=== PATIENT | female | born 1965 | race Caucasian/White ===

== ENCOUNTER 2017-08-21 06:46 | Day surgery (SDC) | payer OTHER ==
[2017-08-17 12:26] VITALS: BMI 33.2
[~2017-08-21 06:46] MED LIST: LACTATED RINGERS 1,000 ML IV SCH; LIDOCAINE 1% 20 ML VIAL (10MG/ML) FOR IV START INTRADERMA PRN
[2017-08-21 07:13] VITALS: TEMP 97.7
[2017-08-21] MEDS ORDERED: fentaNYL (PF) 50 MCG/ML 2 ML AMP ONE (07:56)
[2017-08-21] MEDS ORDERED: GLYCOPYRROLATE 0.2 MG/ML 2 ML VIAL ONE (07:56)
[2017-08-21] MEDS ORDERED: MIDAZOLAM 2 MG/2 ML VIAL ONE (07:56)
[2017-08-21] MEDS ORDERED: LIDOCAINE 1% INJ 10MG/ML (20 ML MDV) ONE (07:56)
[2017-08-21] MEDS ORDERED: PROPOFOL 10 MG/ML 20 ML VIAL IV ONE (07:56)
--- NOTE | 2017-08-21 08:02 | P.GSHP ---
History of Present Illness H&P Date: 08/21/17 Chief Complaint: Screen colonoscopy Is a 51-year-old female referred from Dr. Ruth solomon. Patient presents today for screening colonoscopy. She denies a significant GI complaints. Past Medical History Past Medical History: GERD/Reflux History of Any Multi-Drug Resistant Organisms: None Reported Past Surgical History: Adenoidectomy, Section, Orthopedic Surgery, Tonsillectomy Additional Past Surgical History / Comment(s): LT KNEE SX. D & C. RT FOOT SX Past Anesthesia/Blood Transfusion Reactions: Postoperative Nausea & Vomiting ( PONV) Smoking Status: Former smoker - Past Family History Mother Family Medical History: No Reported History Medications and Allergies Home Medications Medication Instructions Recorded Confirmed Type L.acidoph,Paracasei, B.lactis 1 each PO DAILY 08/17/17 08/21/17 History [Probiotic] Pantoprazole Sodium [Protonix] 40 mg PO DAILY 08/17/17 08/21/17 History Sucralfate [Carafate] 1 gm PO BID 08/17/17 08/21/17 History Allergies Allergy/AdvReac Type Severity Reaction Status Date / Time ciprofloxacin [From Cipro] Allergy FELT LIKE Verified 08/17/17 12:17 LIPS AND FACE WAS TINGLING AND SWOLLEN EYES hydrocodone [From [place]] Allergy Nausea & Verified 08/17/17 12:17 Vomiting codeine AdvReac Nausea & Verified 08/17/17 12:17 Vomiting Surgical - Exam Vital Signs Temp Pulse Resp BP Pulse Ox 97.7 F 60 18 142/86 99 08/21/17 07:11 08/21/17 07:11 08/21/17 07:11 08/21/17 07:11 08/21/17 07:11 - General well developed, no distress - Eyes PERRL - ENT normal pinna - Neck no masses - Respiratory normal expansion - Cardiovascular Rhythm: regular - Abdomen Abdomen: soft, non tender Assessment and Plan Assessment: We'll perform screening colonoscopy.
--- NOTE | 2017-08-21 08:24 | P.OP ---
Date of Procedure: 08/21/17 Preoperative Diagnosis: GERD Screen colonoscopy Postoperative Diagnosis: Antral gastritis No evidence of hiatal hernia No esophagitis Procedure(s) Performed: EGD Colonoscopy Anesthesia: MAC Surgeon: Yeyo Frausto Pathology: other (Antrum) Condition: stable Disposition: PACU Description of Procedure: The patient's placed on the endoscopy table lateral position. She received IV sedation. The gastroscope placed oropharynx passed in the esophagus and into the stomach. Scope was then placed through the pylorus. The first and second portion of the duodenum appeared normal. Scope was then brought back the antrum this. Mildly inflamed. A biopsies performed. Scope was retroflexed and remainder stomach appeared normal. The GE junction was examined. There is no evidence of a hiatal hernia. The distal esophagus appeared normal. The proximal esophagus appeared normal. Scope was withdrawn for patient. Next digital rectal exam was performed which revealed no abnormalities. The flexible colonoscope was then placed patient anus and passed throughout the entire colon. The ileocecal valve was visualized. The cecum, ascending and transverse colon appeared normal. Scope was then brought back the rectum and this appeared normal. Scope withdrawn for patient.
[2017-08-21 09:00] VITALS: BP 133/79; PULSE 58; RESP 18
== END 2017-08-21 09:12 | disposition home or self-care (01) ==
LOC: ORWHC2ENDO 06:46
PROVIDERS: ATTEND Surgery
DX: Z12.11 Encounter for screening for malignant neoplasm of colon (principal); K29.50 Unspecified chronic gastritis without bleeding; K21.9 Gastro-esophageal reflux disease without esophagitis; Z87.891 Personal history of nicotine dependence; Z79.899 Other long term (current) drug therapy; Z88.1 Allergy status to other antibiotic agents; Z88.5 Allergy status to narcotic agent
CPT/HCPCS: 81025; 88305; 43239; J2250; J2001; J3010; J2704; G0121

== ENCOUNTER → 2024-04-22 | Outpatient (CLI) | payer OTHER ==
--- NOTE | 2024-04-22 07:57 | CT ---
EXAMINATION TYPE: CT brain wo con DATE OF EXAM: 04/22/2024 7:19 AM COMPARISON: None. CLINICAL INDICATION: Female, 58 years old with history of R519 HEADACHE [id number] ABNORMALITIES OF GAIT A ND AIME, , TECHNIQUE: Examination was done in axial plane without intravenous contrast. Coronal and sagittal r econstructions performed. CT DLP: 957.3 mGycm, Automated exposure control for dose reduction was used. FINDINGS: There is no evidence of acute intracranial hemorrhage, acute ischemic changes, mass, mass-effect, or extra-axial fluid collection. There is no effacement of cerebral sulci or basal subarachnoid cister ns. There is no hydrocephalus. There is no midline shift. Bhakta-white matter distinction is preserv ed. Partially empty sella. Paranasal sinuses and mastoid air cells well pneumatized. Orbits and globes are intact. IMPRESSION: No acute intracranial abnormality seen. [facility], Workstation: [facility], 04/22/2024 7:54 AM
== END | disposition home or self-care (01) ==
LOC: RADCTMAIN 07:06
PROVIDERS: ATTEND Family Medicine
DX: R51.9 Headache, unspecified (principal); R26.89 Other abnormalities of gait and mobility
CPT/HCPCS: 70450